=== PATIENT | male | born 1955 | race Caucasian/White ===

== ENCOUNTER 2024-11-11 09:39 | Outpatient (CLI) | payer MEDICARE, SELFPAY ==
--- OUTSIDE RECORDS SUMMARY | 2024-11-11 10:15 | XMS_ITS | Clinical Summary ---
Author Organization [facility] Address [address] [place] [id number] Care Team Providers Care Welfare Project Manager Name Role Phone Tony Pelayo MD Primary Care Provider Allergies No known active allergies Medications naproxen sodium 220 mg capsule Take 220 mg by mouth every 12 (twelve) hours Active Active Problems No known active problems Medical History Medical History Date Comments Arthritis Family History Medical History Relation Name Comments Arthritis Father Arthritis Mother Stroke Mother Relation Name Status Comments Father Mother Social History Tobacco Use Types Packs/Day Years Used Date Smoking Tobacco: Every Day Cigarettes Smokeless Tobacco: Never Tobacco Cessation:Ready to Q uit: Not Asked; Counseling Given: Not Answered Personal Safety Answer Date Recorded Getting School Help Needed Not on file 02/09 Sex and Gender Information Value Date Recorded Sex Assigned at Not on file Legal Sex Male 9:26 AM CDT Gender Identity Not on file Sexual Orientation Not on file Obstetrics History Last Filed Vital Signs Vital Sign Reading Time Taken Comments Blood Pressure - - Pulse - - Temperature - - Respiratory Rate - - Oxygen Saturation - - Inhaled Oxygen Concentration - - Weight 102.1 kg (225 lb) 06/21/2022 10:55 AM CDT Height 186.1 cm (6' 1.25) 06/21/2022 10:55 AM C DT Body Mass Index 29.48 06/21/2022 10:55 AM CDT Plan of Treatment Health Maintenance Due Date Last Done Comments Colon Cancer Screening-Colonoscopy 1957 Depression Screening 1957 Fall Risk Assessment 1957 Hepatitis C Screening 1957 Prostate Cancer Screening-PSA 1957 DTaP/Tdap/Td Vaccine (1 - Tdap) 1968 Hepatitis B Screening 07/02/1975 Pneumococcal vaccine 65+ (1 of 2 - PCV) 1976 Zoster Vaccine (1 of 2) 07/02/2007 Abdominal Aortic Aneurysm (AAA) Screen 2022 Well Visit 65+ 2022 Covid-19 Vaccine (2 - season) 2024 Influenza Vaccine (#1) 2024 Insurance [facility] T MEDICARE Care Teams Welfare Project Manager Relationship Specialty Start Date End Date Tony Pelayo MD PCP - General Family Medicine 09/17/21
--- OUTSIDE RECORDS SUMMARY | 2024-11-11 10:15 | XMS_ITS | Clinical Summary ---
Author Organization [facility] Address [address] [place] [address] Care Team Providers Care Light Armored Vehicle Officer Name Role Phone Shayna Crystal Primary Care Provider [phone] Allergies No known active allergies Medications predniSONE (DELTASONE) 20 MG tablet Take 2 tablets (40 mg total) by mouth daily. Active cyclobenzaprine (FLEXERIL) 10 MG tablet Take 1 tablet (10 mg total) by mouth 3 (three) times daily as needed for Muscle Spasms. Active meloxicam (MOBIC) 7.5 MG tablet Take 1 tablet (7.5 mg total) by mouth daily. Active HYDROcodone-shaheed taminophen (NORCO) 5-325 MG tabletIndicatio ns:Acute Pain < 3 Day Supply Take 1 tablet by mouth every 6 (six) hours as needed for Pain. Indications: Acute Pain < 3 Day Supply 10 tablet 12/23/2023 Active Social History Tobacco Use Types Packs/Day Years Used Date Smoking Tobacco: Every Day Cigars Smokeless Tobacco: Never Tobacco Cessation:Ready to Q uit: Not Asked; Counseling Given: Not Answered Alcohol Use Standard Drinks/Week Comments Not Asked 0 (1 standard drink = 0.6 oz pur e alcohol) 10 weekly Sex and Gender Information Value Date Recorded Sex Assigned at Not on file Legal Sex Male 11:15 PM DIRECTOR OF VOCATIONAL GUIDANCE Gender Identity Not on file Sexual Orientation Not on file Last Filed Vital Signs Vital Sign Reading Time Taken Comments Blood Pressure 163/94 12/23/2023 10:49 AM DIRECTOR OF VOCATIONAL GUIDANCE Pulse 58 12/23/2023 10:49 AM DIRECTOR OF VOCATIONAL GUIDANCE Temperature 35.6 C (96.1 F) 12/23/2023 10:08 AM DIRECTOR OF VOCATIONAL GUIDANCE Respiratory Rate 20 12/23/2023 10:08 AM DIRECTOR OF VOCATIONAL GUIDANCE Oxygen Saturation 100% 12/23/2023 10:49 AM DIRECTOR OF VOCATIONAL GUIDANCE Inhaled Oxygen Concentration - - Weight 99.8 kg (220 lb) 12/23/2023 10:08 AM DIRECTOR OF VOCATIONAL GUIDANCE Height 185.4 cm (6' 1) 12/23/2023 10:08 AM DIRECTOR OF VOCATIONAL GUIDANCE Body Mass Index 29.03 12/23/2023 10:08 AM DIRECTOR OF VOCATIONAL GUIDANCE Plan of Treatment Health Maintenance Due Date Last Done Comments Hepatitis C 07/02/1975 DTaP, Tdap and Td Vaccines ( 1 - Tdap) 1976 Pneumococcal Vaccine: 50+ Years (1 of 2 - PCV) 1976 Zoster Vaccines (1 of 2) 07/02/2007 AAA SCREENING 2022 Annual Medicare Wellness Visit 2022 COVID-19 Vaccine (2 - 2024-2 6 season) 2024 09/03/2020 Colorectal Cancer Screening Colonoscopy (10 Years) 02/12/2032 02/11/2022, 02/11/2022 RSV Immunization or 60+ Years (1 - 1-dose 75+ series) 2032 Meningococcal B Vaccine Aged Out No l onger eligible based on patient's age to complete this topic Meningococcal Vaccine Aged Out No hugh ankit eligible based on patient's age to complete this topic RSV Immunizations Under 20 Months Aged Out No longer eligible b ased on patient's age to complete this topic Procedures Procedure Name Priority Date/Time Associated Diagnosis Comments COLONOSCOPY 02/11/2022 6:36 AM DIRECTOR OF VOCATIONAL GUIDANCE from Last 3 Months or Most Recently Relevant to Health Maintenance Results * Colonoscopy (02/11/2022 6:36 AM DIRECTOR OF VOCATIONAL GUIDANCE) Hemant Finch MD GI PROCEDURE ORDERABLES Final Result from Last 3 Months or Most Recently Relevant to Health Maintenance Insurance [employer] Care Teams Light Armored Vehicle Officer Relationship Specialty Start Date End Date Shayna Crystal APNP [address] [place] [address] PCP - General Nurse Practitioner Family 10/05/23
[2024-11-11 13:25] LABS: Hematocrit 45.9 % (42.0-52.0); Hemoglobin 14.8 g/dL (14.0-18.0); Immature Granulocyte Percent A 0.3 % (0-0.5); Lymphocytes Absolute Auto 1.66 K/mm3 (0.9-3.2); Mean Corpuscular HGB Conc 32.2 g/dl (32-36); Mean Corpuscular Hemoglobin 29.7 pg (26-34); Mean Corpuscular Volume 92.0 fl (80-100); Nucleated Red Blood Cells Absolute Auto 0.000 K/mm3 (0.0-0.012); Nucleated Red Blood Cells Perc 0.0 % (0.0-0.2); Platelet Count Result 183 k/mm3 (150-375); Red Blood Count 4.99 M/mm3 (4.6-6.20); White Blood Count 7.1 K/mm3 (4.5-10.0)
[2024-11-11 13:43] LABS: Albumin Level 4.2 g/dL (3.5-5.1); Estimated Glomerular Filt Rate > 60; Glucose 79 mg/dL (65-110)
[2024-11-11 13:51] LABS: Hemoglobin A1C 5.4 % (<5.7)
[2024-11-11 14:39] LABS: MRSA (PCR) NOT DETECTED (NOT DETECTE)
== END 2024-11-11 09:40 | disposition home or self-care (01) ==
LOC: ANHSURGERY 09:45
PROVIDERS: PCP Nurse Practitioner Family; Visit Provider Orthopaedic Surgery
DX: M17.11 Unilateral primary osteoarthritis, right knee (principal); Z01.818 Encounter for other preprocedural examination
CPT/HCPCS: 80307; 82040; 82565; 82947; 83036; 85025; 87641

== ENCOUNTER 2024-12-09 02:09 | Day surgery (SDC) | payer MEDICARE, SELFPAY ==
--- NOTE | 2024-11-11 09:59 | PC.NURSE ---
[facility] has started construction of its new state of the art ER which will open Spring 2026. With this, we anticipate parking may be a challenge for some our surgical patients and families. Parking spaces are limited but are available for all Surgical, obstetrics, and ER patients sharing this lot. If you arrive and find you are having a hard time finding a parking space, please note that we understand the challenges, please drive around the hospital and park near Hospital Entrance 1. When you enter this entrance, you can ask a volunteer to direct or take you back to the surgical waiting area to check in. We appreciate everyone?s understanding of these expected challenges while we build for your future. Report to the Outpatient Waiting Room, entrance under the green pavilion located off [address], at time _10 AM on date _12/09/24 . Planned Procedure Time: __1200 NOON .? Time changes happen often and if your time is changed the preop area will call you the afternoon before. - You and your visitor will be asked to self-screen and do not enter if you have any COVID symptoms. Please call surgeon if you need to reschedule. - A mask is optional within the hospital at this time. Patients may have clear liquids (water, carbonated beverages, clear teas, apple juice) until 3 hours prior to surgery ( 9AM)with a maximum of 20 ounces. - No food from midnight until time of surgery and no smoking, or chewing tobacco (or any form of nicotine). No chewing gum, candy or mints. Take only the following medications with a SIP of water on the morning of surgery: ____NONE DO NOT STOP ANY OF YOUR OTHER PRESCRIPTION MEDICATIONS PRIOR TO SURGERY EXCEPT THE FOLLOWING Hold all vitamins and supplements for 3 days per anesthesiologist. Medications to discontinue per physician ALEVE HOLD 7 DAYS PRE OP PER DR NGUYEN Date to take last dose 12/01/24 Please no make-up, nail occitan, hairspray, perfume, deodorant, or body powder the day of surgery.? No jewelry (including any body piercings) or valuables the day of surgery, leave them at home.? Please take a shower or bath the night before, or the morning of, surgery with an antibacterial soap.? Wear comfortable, loose fitting clothing.? Children are encouraged to wear pajamas. - Jewelry must be removed prior to entering the operating room.? Rings and piercings that are not removed may be cut off. - The hospital will not accept responsibility for valuables.? - Please leave all valuables, including medications, at home the day of surgery. If you are going home after surgery, a licensed wood pile driver operator must drive you home.? - NO public transportation without another adult if you receive anesthesia. - We recommend that an adult stay with you for 24 hours following discharge. - We also recommend that you do not drive, make important decision, drink alcoholic beverages, or take any drugs that were not prescribed by your health care provider for at least 24 hours after your discharge time. For Pediatric surgeries, we recommend two adults accompany the child home. Follow any additional instructions given to you from your surgeon. VERBAL AND WRITTEN instructions given to _PATIENT_AND WIFE and asked if any additional questions and then verbalized understanding. Patient advised to call surgeon office or pre surgery nurse liaison [phone] if any additional questions.
[2024-11-11 10:02] VITALS: BMI 30.2
[2024-11-11 10:48] VITALS: BP 146/84; PULSE 59; RESP 18; TEMP 36.7; O2SAT 99
[2024-12-09] VITALS (11 sets, daily range): BP systolic 116–143; BP diastolic 63–85; PULSE 59–82; RESP 12–16; TEMP 35.7–36.3; O2SAT 93–100; BMI 29.8
--- NOTE | ~2024-12-09 | XR_ITS ---
EXAMINATION: [id number], 12/09/2024 14:55 CDT HISTORY: POST OP RIGHT TKA COMPARISON: No comparisons available. Findings: No acute fracture or malalignment. Arthroplasty intact Soft tissues unremarkable. Impression: No acute fracture or malalignment. Reviewed, dictated and finalized at location P. Impression: No acute fracture or malalignment.
--- OUTSIDE RECORDS SUMMARY | 2024-12-09 02:14 | XMS_ITS | Clinical Summary ---
Author Organization [facility] Address [address] [place] [address] Care Team Providers Care Retirement Village Manager Name Role Phone Shayna Crystal Primary Care Provider [phone]- [phone] Allergies No known active allergies Medications predniSONE [...] on file Legal Sex Male 11:15 PM INNER TUBE TUBER MACHINE OPERATOR Gender Identity Not on file Sexual Orientation Not on file Last Filed Vital Signs Vital Sign Reading Time Taken Comments Blood Pressure 163/94 12/23/2023 10:49 AM INNER TUBE TUBER MACHINE OPERATOR Pulse 58 12/23/2023 10:49 AM INNER TUBE TUBER MACHINE OPERATOR Temperature 35.6 C (96.1 F) 12/23/2023 10:08 AM INNER TUBE TUBER MACHINE OPERATOR Respiratory Rate 20 12/23/2023 10:08 AM INNER TUBE TUBER MACHINE OPERATOR Oxygen Saturation 100% 12/23/2023 10:49 AM INNER TUBE TUBER MACHINE OPERATOR Inhaled Oxygen Concentration - - Weight 99.8 kg (220 lb) 12/23/2023 10:08 AM INNER TUBE TUBER MACHINE OPERATOR Height 185.4 cm (6' 1) 12/23/2023 10:08 AM INNER TUBE TUBER MACHINE OPERATOR Body Mass Index 29.03 12/23/2023 10:08 AM INNER TUBE TUBER MACHINE OPERATOR Plan of Treatment Health Maintenance Due Date Last Done Comments Hepatitis C 07/02/1975 DTaP, Tdap and Td Vaccines ( 1 - Tdap) 1976 Pneumococcal Vaccine: 50+ Years (1 of 2 - PCV) 1976 Zoster Vaccines (1 of 2) 07/02/2007 AAA SCREENING 2022 Annual Medicare Wellness Visit 2022 COVID-19 Vaccine (2 - 2024-2 6 season) 2024 09/03/2020 Influenza Adult (#1) 2024 Colorectal Cancer Screening Colonoscopy (10 Years) 02/12/2032 02/11/2022, 02/11/2022 RSV Immunization or 60+ Years (1 - 1-dose 75+ series) 2032 Hepatitis A Vaccines Aged Out No long er eligible based on patient's age to complete this topic Meningococcal B Vaccine Aged Out No l [...] Associated Diagnosis Comments COLONOSCOPY 02/11/2022 6:36 AM INNER TUBE TUBER MACHINE OPERATOR from Last 3 Months or Most Recently Relevant to Health Maintenance Results * Colonoscopy (02/11/2022 6:36 AM INNER TUBE TUBER MACHINE OPERATOR) Hemant Finch MD GI PROCEDURE ORDERABLES Final Result from Last 3 Months or Most Recently Relevant to Health Maintenance Insurance [employer] MEDICARE Care Teams Retirement Village Manager Relationship Specialty Start Date End Date [place] [address] PCP - General Nurse Practitioner Family 10/05/23
--- OUTSIDE RECORDS SUMMARY | 2024-12-09 02:14 | XMS_ITS | Clinical Summary ---
Author Organization [facility] Address [address] [place] [id number] Care Team Providers Care Melt Superintendant Name Role Phone Tony Pelayo MD Primary [...] season) 2024 Influenza Vaccine (#1) 2024 Insurance [facility] MEDICARE T MEDICARE Care Teams Melt Superintendant Relationship Specialty Start Date End Date Tony Pelayo MD PCP - General Family Medicine 09/17/21
[2024-12-09] MEDS: ACETAMINOPHEN 500 MG TABLET 1000 MG PO (11:00)
--- NOTE | 2024-12-09 11:19 | P.PNAN_ITS ---
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 Patient Data Age: 69 Gender: M Height: 1.85 m Weight: 103.8 kg Last Vital Signs Temp 98.1 F 11/11/24 10:48 Pulse 59 L 11/11/24 10:48 Resp 18 11/11/24 10:48 BP 146/84 H 11/11/24 10:48 Pulse Ox 99 11/11/24 10:48 O2 Del Method Room Air 11/11/24 10:48 Allergies Allergy/AdvReac Type Severity Reaction Status Date / Time No Known Allergies Allergy Verified 11/11/24 10:03 Home Medications ?Medication ?Instructions ?Recorded ?Confirmed ?Type naproxen sodium 220 mg capsule 220 mg PO DAILY 5 11/11/24 History (Aleve) aspirin 81 mg tablet,delayed 81 mg PO BID 14 days #28 tabs 12/09/24 Rx release meloxicam 15 mg tablet 15 mg PO DAILY #30 tabs 11/14 09/06 Rx oxycodone-acetaminophen 5 mg-325 1 - 2 tablet PO Q4-6H PRN pain #30 12/09/24 Rx mg tablet tabs prednisone 5 mg tablet 5 mg PO DAILY 3 weeks #21 ta bs 12/09/24 Rx Patient hx anesthesia problems: none Family hx anesthesia problems: none Results Review: All pre-operative results and documents have been reviewed as part of the pre- operative evaluation. [facility] Social History Social History Smoking status: Light tobacco smoker Additional smoking assessment comments: SMOKED CIGARS APPROX 10 YRS QUIT 2021.DENIES ANY FORM OF TOBACCO USE Alcohol intake: current Drinks per week: 10 Alcohol use details: BEER Substance use: current Substance use type: marijuana Other substance usage details: SMOKES MARIJUANA ONCE A MONTH Last use: 09/2024 Living arrangements: with family Spiritual care concerns: No Anes - Eval Final PreProcedure Day of Procedure 12/09/24 11:19 Patient weight: obese Lungs: normal air movement Airway: Mallampati scale class II Neurological: alert and oriented Last oral intake: >/= 8 hours ASA classification: II Emergent: no Anesthetic plan: proceed Anesthesia type and monitoring: general ETT and standard monitoring Results Review: All pre-operative results and documents have been reviewed as part of the pre- operative evaluation. OA, overall good health, active still w golfing, no cp or sob. EKG w NSR. Informed Consent: The patient's anesthetic plan and its attendant risks and benefits were discussed with the patient/family/POA. Questions were solicited and answers provided to the satisfaction of the patient/family/POA.
[2024-12-09] MEDS: LACTATED RINGERS 1,000 ML 30 ML IV CONT ×2 (11:20→14:52)
[2024-12-09] MEDS: TRANEXAMIC ACID 1,000MG/ISO100 1,000 MG/100 ML BAG 200 MG IVPB (11:33)
--- NOTE | 2024-12-09 12:03 | WPDHPUPDATE1 ---
History and Physical Update Update Date/Time: 12/09/24 12:03 History and Physical has been reviewed, including an updated exam of the patient. There are NO changes in the patient's condition. Risks, benefits, and alternatives have been discussed and questions answered. Patient agrees to proceed with procedure.
[2024-12-09] MEDS: ceFAZolin 2 GM in SODIUM CHLORIDE 0.9% IV 50 ML 100 ML IVPB ×2 (12:24→20:13)
[2024-12-09] MEDS: SODIUM CHLORIDE 0.9% IV 37.7 ML, MORPHINE SULFATE INJ (*CRX) 2 MG, ROPivacaine HCL 1% 2... INFILTRATE (12:40)
[2024-12-09] MEDS: TRANEXAMIC ACID 1,000 MG/10 ML AMPUL 1000 MG IV PUSH (14:31)
--- NOTE | 2024-12-09 14:53 | P.OP_ITS ---
Procedure Note - Detailed Date of Procedure 12/09/24 Pre-op Diagnosis Right knee degenerative arthritis. Post-op Diagnosis Same Procedure Performed Calipered, kinematically aligned total knee replacement right knee. Surgeon Bryan Ramirez MD Dispatch Coordinator Mayda Calderon PA-C Anesthesia General Findings According to the calipered kinematic alignment principles, the knee was balanced by the following verification checks incorporating 6 caliper measurements, using an insert goniometer to select the insert thickness, and adjusting the tibial resection following the kinematic alignment algorithm (see figure 160.10 published in [employer] chapter on kinematic alignment total knee arthroplasty.) The steps verified the femoral and tibial components were kinematically aligned coincident to the patient's pre arthritic joint lines, which closely restored the [place] tibial compartment forces and ligament laxities without ligament release. The [employer] GRIDriKA knee, designed specifically for kinematic alignment, fit optimally. Severe medial and posterior medial tibial erosion. High [place] slope. Chronic ACL deficiency. No collateral ligament releases. PCL release required. The record of verification checks were documented and scanned into the chart. Distal Femoral Resection: Distal Medial 6 mm(cartilage worn), Distal Lateral 8.5 mm Target thickness of 8mm Unworn, 6mm Worn (No Cartilage). Posterior Femoral Resection: Posterior Medial 5 mm(cartilage worn), Posterior Lateral 7 mm. Target thickness of 7mm Unworn, 5mm Worn (No Cartilage). Description of Procedure General anesthesia was administered. A well-padded tourniquet was placed high on the thigh. The limb was prepped and draped in the usual sterile fashion. The limb was exsanguinated and the tourniquet inflated to 300 mmHgduring exposure and cementation. A longitudinal incision was created over the midline of the knee. Sharp dissection was taken through subcutaneous tissues. Electrocautery was used for hemostasis. A trivector approach to the knee joint was performed. The ACL, anterior horns of the menisci, and fat pad were excised, and a subperiosteal dissection was carried along the posterior medial border of the tibia. Starting midway between the top of the notch in the anterior femoral cortex, I drilled a 9 mm diameter hole parallel to the anterior cortex to minimize flexion of the femoral component and promote patella tracking. I verified the existence of a 5-10 mm bone bridge between the posterior aspect of the hole and the anterior limit of the intercondylar notch. An intraosseous positioning miller was inserted 10 cm into the femur perpendicular to the distal joint line and parallel to the anterior cortex. I used a distal femoral referencing guide that compensated 2 mm when the cartilage was worn on the distal medial femoral condyle, and 2 mm when the cartilage was worn on the distal lateral femoral condyle. The basis for setting the distal and posterior femoral resection guide is knowing that the varus and v algus grade II to IV Kellegren-Cheikh osteoarthritic knees have negligible bone wear at 0? and 90? and that the mean full-thickness cartilage wear approximates 2 mm. I measured the thickness of distal femoral resections with a caliper to +/- 0.5 mm. The thickness of each resection was adjusted to match the thickness of the respective condyle of the femoral component within 0.5 mm of target after compensating for cartilage wear and kerf. When the distal resection was 1-2 mm too thin, a recut guide was used to adjust the cut. When the distal resection was too thick, a 1 or 2 mm thick washer was fixed to the back of the 4-in-1 chamfer block to irish a corrective gap between the femoral component and distal femur. I set posterior femoral referencing guide at 0? orientation to position the pin holes for the 4 in 1 chamfer block. The gypsy wing measured the width of the distal femoral resection and selected the size of the 4 in 1 chamfer block and femoral component. The AP sizer confirmed the size. I measured the thickness of the posterior femoral resections with a caliper before making the anterior and chamfer cuts. I adjusted the thicknesses of each resection to match the thic kness of the respective condyle of the femoral component within +/-0.5 mm after compensating for cartilage wear and curve. When a posterior resection femoral resection was 1-2 mm too thick or thin a corrective correction was made by shifting or rotating the 4 in 1 chamfer block as needed. The chamfer block was secured in the correct position with compression screws. The anterior and chamfer femoral resections were made. These caliper measurements and corrections verified that the femoral component was set coincident with the patient's pre-arthritic distal and posterior femoral joint lines. I removed all the medial and lateral femoral and tibial osteophytes to restore the pre arthritic length of the medial and lateral collateral ligaments. I nahtalie AP lines along the major axis of the lateral tibial plateau in between the tibial spines which identified the flexion extension plane of the knee. A conventional extramedullary tibial resection guide was applied to the ankle. An gypsy wing was placed medially in the saw slot. The varus valgus angle of the tibial resection guide was adjusted until the guide paralleled the proximal tibial articular surface after compensating for cartilage and bone wear. The slope of flexion extension angle of the tibial resection guide was adjusted until the gypsy wing paralleled the slope of the medial tibia after compensating for wear. The AP axis of the tibial resection guide was adjusted parallel to the two lines. The proximal tibia was resected, partially releasing the insertion of the posterior cruciate ligament. The thickness of the medial and lateral lateral tibial condyle was measured at the base of the tibial spines. I visually verified the slope of the medial border of the resection was parallel to the patient's pre arthritic slope after compensating for cartilage and bone wear. I removed the remnants of the posterior horns of the menisci and posterior osteophytes and cauterized the inferior lateral genicular vessels. The Aquamantys bipolar device was also used to for additional hemostasis. When the knee had a preoperative flexion contracture of 20? or more I teased the capsule off the posterior femur with a curved 3 quarter-inch osteotome. I administered the posterior femoral periosteal injection by delivering 10 cc using a 20 gauge spinal needle at the most medial and 10 cc at the most lateral femoral spur surface which reduced the risk of injury to the posterior neurovascular structures. I followed 6 options in a decision tree to fine tune the varus valgus and posterior slope orientation of the tibial component to restore the patient's pre arthritic tibial joint line and limb alignment. First, I adjusted the varus- valgus orientation of the proximal tibia resection working in 1 degree to 2 deg ree increments until there was negligible medial and lateral lift off of the distal femoral and proximal tibial resection from the spacer block during a varus valgus laxity assessment in extension. I selected the largest anatomic shape trial tibial base plate that fit within the cortical boundary of the proximal tibial resection. The base plate was best fit parallel to the cortical boundary which set the Internal-external orientation of the anterior to posterior and medial to lateral positions. The best fit method set the AP axis of the tibial base plate and insert parallel to the flexion extension plane of the pre arthritic knee. I pinned the trial tibial base plate, prepared the cruciate slot, and fixed the base plate to the tibia with the cruciate stem. I inserted the trial femoral component. The knee was placed in full extension. Varus valgus laxity is of the knee with trial components were assessed. When asymmetric laxity was observed a 1-2 degree varus or valgus recut guide was used to fine tune the tibial resection until the laxity was 1 degree or less in full extension like the [place] knee. The following steps determined the optimal insert thickness within +/-1 mm. First I inserted an insert goniometer that matched the thickness of the spacer block. I reduced the patella and then with the knee in maximum extension, I verified the knee hyperextended a few degrees and had negligible varus valgus laxity, like the pre arthritic knee. Next, I measured the external tibial orientation which was the angle the insert goniometer intersected the sagittal line on the medial condyle of the femoral trial component. Then with the knee in 15-30 degrees flexion I verified a 3-4 mm gap in the lateral compartment and no gap in the medial compartment during a 2nd varus valgus laxity test. Next, I placed the knee in 90? of flexion and the foot resting on the operating table and measured the internal tibial orientation. I repeated the steps until I identified the insert thickness that provided the highest external tibia orientation in extension and the highest internal tibial orientation at 90? flexion without anterior lift-off of the insert from the tibial base plate. The insert with this thickness was implanted. I applied a posterior drawer test with the tibia distracted by gravity and verified no posterior subluxation of the tibia relative to the femur. The thickness of the [place] patella was measured with a caliper. The patella was resected using the oscillating saw. The best fitting anatomic patella button was selected. The fixation holes were drilled. When the patella and patella buttons combined thickness was thicker than the [place] patella, the patella was recut. The patella remained centered on the trochlea and tracked well throughout the entire arc of flexion and extension. I used pulse lavage to clean the bony surfaces of debris and dried bone. I cemented the tibial, femoral, and patellar components using 1 bag of methylmethacrylate with Gentamycin, then rechecked the stability at full extension, 15-30 degrees, and 90? flexion and verified zoroastrian of the entire arc of motion of the knee. The circulating nurse confirmed the sponge and needle counts were correct. I used pulse lavage to rinse the joint and wound. The extensor mechanism was closed with interrupted #1 Vicryl suture and #1 running Stratafix suture. The subcutaneous layer was closed with interrupted #1 Vicryl suture followed by 2-0 Stratafix and 3-0 Stratafix. Steri-Strips placed on the skin. Silver impregnated occlusive dressing applied to the wound. A light gauze wrap and Bryce bandage were placed. The patient was transferred to the recovery room in stable condition. There were no complications. Implants Medacta K spheriKA Femoral component SpheriKA size 5+, tibial component size 5, vitamin-E flex insert, thickness 13mm, Anatomic patella implant size 3. Estimated Blood Loss 100 Drains No Pathology None sent Complications No immediate complications Condition Stable Disposition PACU [facility] Billing Surgery - Charge Forward: Surgery Billing
[2024-12-09] MEDS: fentaNYL CITRATE INJ (*CRX) 100 MCG/2 ML VIAL 25 MCG IV PUSH ×4 (15:17→15:33)
[2024-12-09] MEDS: oxyCODONE/ACETAMINOPHEN (*CRX) 5-325 MG TABLET 1 TABLET PO (16:22)
[2024-12-09] MEDS: ASPIRIN 81 MG ENTERIC TABLET PO ×2 (16:23→20:12)
[2024-12-09] MEDS: FAMOTIDINE 20 MG TABLET PO ×2 (16:23→20:12)
[2024-12-09] MEDS: MELOXICAM 7.5 MG TABLET PO (16:23)
[2024-12-09] MEDS: SODIUM CHLORIDE 0.9% IV 1,000 ML 125 ML IV CONT (16:23)
[2024-12-09] MEDS: SENNA/DOCUSATE SODIUM TABLET 2 TAB PO (16:23)
[2024-12-09] MEDS: ACETAMINOPHEN 325 MG TABLET 650 MG PO ×2 (17:56→23:19)
[2024-12-09] MEDS: CYCLOBENZAPRINE HCL 10 MG TABLET PO (17:57)
[2024-12-09] MEDS: oxyCODONE/ACETAMINOPHEN (*CRX) 10-325 MG TABLET 1 TAB PO (20:12)
[2024-12-10 00:10] VITALS: BP 98/68; PULSE 57; RESP 16; TEMP 36.4; O2SAT 97
[2024-12-10 04:59] VITALS: BP 144/78; PULSE 55; RESP 16; TEMP 36.6; O2SAT 99
[2024-12-10] MEDS: ACETAMINOPHEN 325 MG TABLET 650 MG PO ×2 (05:05→11:52)
[2024-12-10] MEDS: ceFAZolin 2 GM in SODIUM CHLORIDE 0.9% IV 50 ML 100 ML IVPB ×2 (05:05→11:49)
[2024-12-10] MEDS: CYCLOBENZAPRINE HCL 10 MG TABLET PO (05:10)
[2024-12-10] MEDS: oxyCODONE/ACETAMINOPHEN (*CRX) 10-325 MG TABLET 1 TAB PO ×2 (05:10→11:49)
[2024-12-10 05:43] LABS: Hematocrit 40.1 % (42.0-52.0); Hemoglobin 13.0 g/dL (14.0-18.0); Immature Granulocyte Percent A 0.3 % (0-0.5); Lymphocytes Absolute Auto 1.42 K/mm3 (0.9-3.2); Mean Corpuscular HGB Conc 32.4 g/dl (32-36); Mean Corpuscular Hemoglobin 29.6 pg (26-34); Mean Corpuscular Volume 91.3 fl (80-100); Nucleated Red Blood Cells Absolute Auto 0.000 K/mm3 (0.0-0.012); Nucleated Red Blood Cells Perc 0.0 % (0.0-0.2); Platelet Count Result 178 k/mm3 (150-375); Red Blood Count 4.39 M/mm3 (4.6-6.20); White Blood Count 10.5 K/mm3 (4.5-10.0)
[2024-12-10 06:04] LABS: Anion Gap 5 mmol/L (4-12); Blood Urea Nitrogen 16 mg/dL (9-20); Calcium 8.3 mg/dL (8.4-10.2); Carbon Dioxide 28 mmol/L (22-30); Chloride 102 mmol/L (98-107); Estimated CRCL calculation 72 ml/min; Estimated Glomerular Filt Rate > 60; Glucose 111 mg/dL (65-110); Potassium 4.6 mmol/L (3.4-5.0); Sodium 135 mmol/L (137-145)
[2024-12-10 08:00] VITALS: BP 125/67; PULSE 58; RESP 18; TEMP 36.4; O2SAT 98
[2024-12-10] MEDS: traMADol HCL (*CRX) 50 MG TABLET PO (08:14)
[2024-12-10] MEDS: ASPIRIN 81 MG ENTERIC TABLET PO (08:15)
[2024-12-10] MEDS: SENNA/DOCUSATE SODIUM TABLET 2 TAB PO (08:15)
[2024-12-10] MEDS: FAMOTIDINE 20 MG TABLET PO (08:15)
[2024-12-10] MEDS: MELOXICAM 7.5 MG TABLET PO (08:16)
[2024-12-10 12:00] VITALS: BP 146/77; PULSE 59; RESP 18; TEMP 36.3; O2SAT 99
== END 2024-12-10 12:39 | disposition home or self-care (01) ==
LOC: ANHSURGERY 10:05 → ANH3MEDSUR 15:53
PROVIDERS: Physician Assistant Surgical; PCP Nurse Practitioner Family; Visit Provider Orthopaedic Surgery
PROC: (CPT 27447; principal; 2024-12-09 12:00)
DX: M17.11 Unilateral primary osteoarthritis, right knee (principal); M25.761 Osteophyte, right knee; F12.90 Cannabis use, unspecified, uncomplicated; E66.9 Obesity, unspecified; Z68.29 Body mass index [BMI] 29.0-29.9, adult; Z79.1 Long term (current) use of non-steroidal anti-inflammatories (NSAID); Z79.891 Long term (current) use of opiate analgesic; Z79.52 Long term (current) use of systemic steroids; Z87.891 Personal history of nicotine dependence
CPT/HCPCS: 27447; 36415; 73560; 80048; 85025; 86850; 86900; 86901; 97110; 97161; 97165; C1776; J0690; A9270; C1713; J0166; J1100; J1885; J2003; J2250; J2270; J2405; J2704; J2795; J3010; J3290; J7030; J7120; J7512